=== PATIENT | male | born 1985 | race Hispanic/Latino ===

== ENCOUNTER 2023-08-12 06:55 | Day surgery (SDC) | payer OTHER ==
[2023-08-10 12:00] LABS: BASOPHILS # (AUTO) 0.05 K/uL (0.00-0.20); BASOPHILS % (AUTO) 0.6 % (0.0-5.0); EOSINOPHILS # (AUTO) 0.38 K/uL (0.00-0.70); EOSINOPHILS % (AUTO) 4.8 % (0.0-8.0); HEMATOCRIT 46.1 % (42-54); IMMATURE GRANULOCYTE ABSOLUTE 0.03 K/uL (0-1); LYMPHOCYTES # (AUTO) 2.5 K/uL (1.0-4.8); LYMPHOCYTES % (AUTO) 31.9 % (21.0-51.0); MEAN CORPUSCULAR HEMOGLOBIN 27.1 pg (27.0-33.0); MEAN CORPUSCULAR HGB CONC 33.6 g/dL (32.0-36.0); MEAN CORPUSCULAR VOLUME 80.7 fL (79-99); MONOCYTES # (AUTO) 0.6 K/uL (0.1-1.0); MONOCYTES % (AUTO) 7.2 % (3.0-13.0); NEUTROPHILS # (AUTO) 4.3 K/uL (1.8-7.7); NEUTROPHILS % (AUTO) 55.1 % (40.0-77.0); PLATELET COUNT (AUTO) 295 K/uL (130-400); RED BLOOD CELL COUNT(AUTO) 5.71 MIL/uL (4.50-6.20); RED CELL DISTRIBUTION WIDTH 13.8 % (11.0-15.5); WHITE BLOOD COUNT (AUTO) 7.9 K/uL (4.8-10.8)
[2023-08-10 12:10] LABS: INR <= 0.93 (0.85-1.15); PROTHROMBIN TIME 10.9 SEC (9.6-11.6)
[2023-08-10 12:12] LABS: PARTIAL THROMBOPLASTIN TIME 29.4 SEC (26.3-35.5)
[2023-08-10 12:16] LABS: ALBUMIN 3.8 g/dL (3.5-5.0); CREATININE 0.8 mg/dL (0.5-1.3); POTASSIUM 3.5 mmol/L (3.5-5.1)
[2023-08-10 12:27] VITALS: BP 124/95; PULSE 74; RESP 16
[~2023-08-12] VITALS: Ht 170.2 cm; Wt 126.0 kg
[2023-08-12] VITALS (17 sets, daily range): BP systolic 101–147; BP diastolic 67–86; PULSE 73–89; RESP 15–20
[2023-08-12] MEDS: LACTATED RINGERS 1000ML 1,000 ML IV ONE (07:39)
[2023-08-12] MEDS: CEFAZOLIN SODIUM 2 GM VIAL ONE (07:39)
[2023-08-12] MEDS ORDERED: EPINEPHRINE PF 1MG (1:1,000) 1 MG/ML AMP ONE (08:09)
[2023-08-12] MEDS ORDERED: KETAMINE 50MG/ML SYRINGE 50 MG/ML DISP.SYRIN ONE (08:13)
[2023-08-12] MEDS ORDERED: ROPIVACAINE 0.5% 5MG/ML 30ML ONE (08:13)
[2023-08-12] MEDS ORDERED: DEXAMETHASONE SOD PHOSPHATE 10MG/ML 1ML VIAL ONE (10:04)
[2023-08-12] MEDS ORDERED: SUCCINYLCHOLINE CHLORIDE 20 MG/ML 10 ML VIAL ONE (10:04)
[2023-08-12] MEDS ORDERED: MIDAZOLAM HCL 1 MG/ML 2ML VIAL ONE (10:04)
[2023-08-12] MEDS ORDERED: ONDANSETRON 4MG INJ ONE (10:04)
[2023-08-12] MEDS ORDERED: GLYCOPYRROLATE 0.2 MG/ML 5 ML VIAL ONE (10:04)
[2023-08-12] MEDS ORDERED: LIDOCAINE PF 100MG/5ML (2%) SYRINGE 5ML ONE (10:04)
[2023-08-12] MEDS ORDERED: ROCURONIUM BROMIDE 10MG/1ML 5ML VL ONE ×2 (10:05→11:40)
[2023-08-12] MEDS ORDERED: NEOSTIGMINE METHYLSULFATE 1MG/ML IV ONE (10:05)
[2023-08-12] MEDS ORDERED: FENTANYL CITRATE PF 50 MCG/1 ML 2ML VIAL ONE (10:05)
[2023-08-12] MEDS ORDERED: PROPOFOL 10 MG/ML 20ML VIAL IV ONE (10:05)
[2023-08-12] MEDS: CEFAZOLIN SODIUM 3 GM VIAL IVPB ONE (10:54)
[2023-08-12] MEDS ORDERED: EPHEDRINE SULFATE 50 MG/ML AMPULE ONE (11:01)
[2023-08-12] MEDS ORDERED: HYDR-4060 PO (12:25)
[2023-08-12] MEDS: ONDANSETRON 4MG INJ ONE (13:11)
[2023-08-12] MEDS: MEPERIDINE-PF 25 MG/ML SYG ONE (13:11)
[2023-08-12] MEDS: METOCLOPRAMIDE 10 MG/2 ML VIAL ONE (13:21)
== END 2023-08-12 14:20 | disposition home or self-care (01) ==
LOC: DAH 06:55
PROVIDERS: ATTEND Student in an Organized Health Care Education/Training Program
DX: M75.42 Impingement syndrome of left shoulder (principal); M19.012 Primary osteoarthritis, left shoulder; M24.112 Other articular cartilage disorders, left shoulder; M75.112 Incomplete rotator cuff tear or rupture of left shoulder, not specified as traumatic; M75.22 Bicipital tendinitis, left shoulder; M65.812 Other synovitis and tenosynovitis, left shoulder; M77.8 Other enthesopathies, not elsewhere classified; K21.9 Gastro-esophageal reflux disease without esophagitis; E66.01 Morbid (severe) obesity due to excess calories; Z87.891 Personal history of nicotine dependence; Z79.01 Long term (current) use of anticoagulants; Z79.899 Other long term (current) drug therapy; Z68.41 Body mass index [BMI] 40.0-44.9, adult; Z72.89 Other problems related to lifestyle
CPT/HCPCS: 82040; 80048; 85025; 85610; 85730; 36415; 29822; 64415; A4663; J7120 ×2; A4452; J0690 ×2; J3010; J1100; J0330; J3490 ×4; J2001; J0171; J2250; J2704; J2405 ×2; J2710; J2175; J2765; J2795; A6223; A4215; A4223; A4213; A4222; A4221; A4600